=== PATIENT | male | born 1990 | race Caucasian/White ===

== ENCOUNTER 2017-01-06 07:54 | Inpatient (IN) | payer BC, OTHER ==
[~2017-01-06] VITALS: Ht 193 cm; Wt 80.7 kg
--- NOTE | 2017-01-07 22:40 | NUR ---
Pre-Admission Note Px is a 26 year old male, seen at intake, AAOx4, no SOB with slight anxiety, flat affect, withdrawn, passive noted at this time. Discussed with patients admission policies of the unit. Patient is coherent and able to respond to questions appropriately. Pt is ambulatory with steady gait. Vital Signs taken and as follows: . BP= 118/57, CT= 79, RR= 17, T= 97.2, O2sat= 96% RA. Pt verbalized understanding of instructions and teaching regarding disposal of narcotic and other controlled home medications, unit protocols such as taking of vital signs Q4H and handling and disposal of contraband. Will continue with admission upon patients arrival on the unit.
--- NOTE | 2017-01-07 23:06 | NUR ---
Admission Notes Px is 26 year old male admitted to [facility] 01/07/2017 for methamphetamines and Heroin dependence, arrived on the unit at 2306. NKA, denies history of seizures. Px denies any PMHx, but was diagnosed with anxiety and depression in [facility]. Pt was able to provide urine drug screen. Upon admission, COWS 7. BP= 118/57, OK= 79, RR= 15, T= 97.2, O2sat= 96% RA. No reports of pain , weight 178 lbs and height 6 4. Pt denies being hospitalized within the past 30 days. Pt reports she smokes 10 sticks of cigarettes per day. Px reports she doesnt have primary care provider. Pt is able to understand and respond to all questions pertaining to his hospitalization. Substance Abuse History is as follows: 1.Methamphetamine- 0.2 G 2x a week, last intake of 0.2 G IV on 01/06/2017, at this rate for 2 years. 2.Heroin 0.5 G to 2 G IV daily, last intake of 0.5 G IV today 01/07/2017, at this rate for 7 years Pt reports the trigger to use is due to feeling stressed, anxious, and depressed. Px states that he was sober for 1.5 years. 4 months ago went to detox center but cant recall the name of the facility. Px verbalized I wanted to change my miserable life". Px denies family history of substance abuse. At time of assessment, px is AAOx4, is anxious, passive, has flat affect, respirations even/unlabored, denies SOB/chest pain, PERRLA. Skin has scabs from picking over the face, upper back, arms, and left leg, and noted with mild sweat, bowel sounds active x4, abdomen soft. Pt denies suicidal ideations. Educational information provided and left at bedside, pt oriented to room and encouraged to notify staff with any concerns. Safety measures in place, call light within reach, side rails up x2, bed locked and in low position. Will continue to monitor.
[2017-01-07] MEDS ORDERED: CLONIDINE HCL 0.1 MG TABLET PO PRN (23:15)
[2017-01-07] MEDS ORDERED: MIRALAX 17 GM POWD.PACK PO PRN (23:15)
[2017-01-07] MEDS ORDERED: BUPRENORPHINE HCL 2 MG TAB.SUBL SL PRN (23:15)
[2017-01-07] MEDS ORDERED: METHOCARBAMOL 750 MG TABLET PO PRN (23:15)
[2017-01-07] MEDS ORDERED: ONDANSETRON ODT 4 MG TAB.RAPDIS SL PRN (23:15)
[2017-01-07] MEDS ORDERED: MAG HYDROX/AL HYDROX/SIMETH 30 ML LIQUID UDC PO PRN (23:15)
[2017-01-07] MEDS ORDERED: MAGNESIUM HYDROXIDE 30 ML LIQUID UDC PO PRN (23:15)
[2017-01-07] MEDS ORDERED: DICYCLOMINE HCL 20 MG TABLET PO PRN (23:15)
[2017-01-07] MEDS ORDERED: ACETAMINOPHEN 325 MG TABLET PO PRN (23:15)
[2017-01-07] MEDS ORDERED: ONDANSETRON 4 MG/2 ML VIAL IM PRN (23:15)
[2017-01-07] MEDS ORDERED: LOPERAMIDE HCL 2 MG CAPSULE PO PRN ×2 (23:15)
[2017-01-07] MEDS ORDERED: IBUPROFEN 400 MG TABLET PO PRN (23:15)
[2017-01-07 23:35] LABS: BASOPHILS % (AUTO) 0.4 % (0.0-2.0); EOSINOPHILS # (AUTO) 0.1 K/uL (0.0-0.7); HEMATOCRIT 38.8 % (40-50); HEMOGLOBIN 13.3 G/DL (14.0-18.0); LYMPHOCYTES # (AUTO) 2.4 K/UL (0.8-4.8); LYMPHOCYTES % (AUTO) 21.1 % (20.5-51.5); MEAN CORPUSCULAR HEMOGLOBIN 29.7 UUG (27.0-31.0); MEAN CORPUSCULAR HGB CONC 34 g/dL (32.0-37.0); MEAN CORPUSCULAR VOLUME 86.8 FL (82.0-92.0); MONOCYTES # (AUTO) 0.7 K/UL (0.1-1.30); MONOCYTES % (AUTO) 5.9 % (0.0-11.0); NEUTROPHILS # (AUTO) 8.1 K/UL (1.8-8.9); NEUTROPHILS % (AUTO) 71.6 % (38.5-71.5); PLATELET COUNT (AUTO) 296 K/UL (150-450); RED BLOOD CELL COUNT(AUTO) 4.47 MIL/UL (4.7-6.1); WHITE BLOOD COUNT (AUTO) 11.3 K/UL (4.0-11.2)
[2017-01-07 23:44] LABS: *AMPHETAMINE, URINE POSITIVE (NEGATIVE); *BARBITURATE, URINE NEGATIVE (NEGATIVE); *CANNABINOID, URINE POSITIVE (NEGATIVE); *COCCAINE, URINE NEGATIVE (NEGATIVE); *OPIATE, URINE POSITIVE (NEGATIVE); *PHENCYCLIDINE SCREEN,URINE NEGATIVE (NEGATIVE)
[2017-01-07 23:46] LABS: ALANINE AMINOTRANSFERASE 35 U/L (16-63); ALKALINE PHOSPHATASE 64 U/L (50-136); AMYLASE 62 U/L (25-115); ASPARTATE AMINOTRANSFERASE 25 U/L (15-37); BILIRUBIN,TOTAL 0.4 mg/dL (0.2-1.0); CARBON DIOXIDE 33 mmol/L (21-32); CHLORIDE 100 mmol/L (98-107); CREATININE 0.9 mg/dL (0.6-1.3); ETHANOL < 3 MG/DL (0-0); GLUCOSE 97 mg/dL (74-106); LIPASE 147 U/L (73-393); MAGNESIUM 1.9 mg/dL (1.8-2.4); POTASSIUM 4.1 mmol/L (3.5-5.1); TOTAL PROTEIN, SERUM 7.3 g/dL (6.4-8.2); UREA NITROGEN, BLOOD 19 mg/dL (7-18)
[2017-01-07] MEDS ORDERED: BUPR1FIL3 SL (23:51)
[2017-01-07 23:59] LABS: THYROID STIMULATING HORMONE 0.281 mIU/mL (0.358-3.740)
[2017-01-08] VITALS: BP 108/53
[2017-01-08 04:00] VITALS: BP 110/59
--- NOTE | 2017-01-08 07:06 | NUR ---
End of Shift note 26 y/o male px admitted 01/07/2017 at 2306 for Heroin and methamphetamine IV dependence. . Alert, Oriented x4. NKA. On regular diet. Full code. Denies hx of seizures, has hx of anxiety and depression in high school. During shift, Px is cooperative, passive, with flat affect and anxious. Profuse sweating noted at 12MN and a bit restlessness. No complaints received. NO PRN meds given at this time. Slept for 5hrs, fluid intake of 300ml, voided 1x, no BM. Latest COWS 12. Safety measures in place, call light within reach, side rails up 2x, bed locked in low position. Will continue to monitor. Endorsed to AM shift nurse.
[2017-01-08 08:00] VITALS: BP 90/44
[2017-01-08] MEDS ORDERED: TUBERCULIN,PURIF.PROT.DERIV. 5 TU/0.1 ML TEST ID ONE (09:00)
[2017-01-08] MEDS: HYDROXYZINE PAMOATE 25 MG CAPSULE PO PRN (09:26)
[2017-01-08] MEDS: MULTIVITAMINS,THERAPEUTIC TABLET PO SCH (09:26)
--- NOTE | 2017-01-08 09:28 | NUR ---
PRN IBUPROFEN AND ROBAXIN Patient complained of body aches 5/10, prn ibuprofen and robaxin given. Will continue to monitor patient.
--- NOTE | 2017-01-08 10:00 | NUR ---
START OF SHIFT Received report from night shift supervisor nurse. Patient is 26 year old male admitted for medically supervised withdrawal from meth and heroin (patient also positive for cannbinoids). Patient is full code with NKA. On assessment this AM: COWS: 6. Denies SOB, chest pain. Patients vitals signs: 90/44, HR 52, R 18, Temp 98.3, pain 5/10. Recheck: 95/45, HR 51. Reports mild anxiety, stomach cramp, body aches, stuffy nose, sweating. Med compliant with AM meds. PRN Ibuprofen and Robaxin given. PPD skin test performed on RFA to be read on 01/10/17. Instructed patient to drink po fluids. Patient stays in bed most part of the morning. Patient was encouraged to attend group meetings today. Will continue to monitor patient.
--- NOTE | 2017-01-08 10:28 | NUR ---
PRN IBUPROFEN AND ROBAXIN Patient reports pain meds mildly effective at this time.
[2017-01-08 12:00] VITALS: BP 92/50
[2017-01-08] MEDS ORDERED: BUPRENORPHINE HCL 2 MG TAB.SUBL SL PRN (13:45)
[2017-01-08 16:00] VITALS: BP 96/77
--- NOTE | 2017-01-08 16:50 | NUR ---
PRN SUBUTEX Patient's COWS is 15. Patient has dilated pupils, body aches, stuffy noted, frequent yawning, prominent piloerection, restlessness, sweating. PRN Subutex 4mg po sublingual given. Will continue to monitor patient.
--- NOTE | 2017-01-08 17:20 | NUR ---
REASSESSMENT PRN SUBUTEX Patient'S COWS is 7, patient reports feeling much better.
--- NOTE | 2017-01-08 19:30 | NUR ---
END OF SHIFT Patient is 26 year old male admitted for medically supervised withdrawal from meth and heroin. Patient is full code with NKA. Most recent COWS: 7. Compliant with routine meds during this shift. Patient received prn Subutex with COWS 15, reassessment COWS was 7. Patient reports feeling much better. Encouraged patient to hydrate as systolic BP runs in 90's. technology lab teachermanufacturing supervisor 2nd shift will continue to monitor patient.
--- NOTE | 2017-01-08 19:31 | NUR ---
Start of Shift Note: Patient is a 26 y/o male admitted on 01/07/17 for Opiate dependence. Patient reported with medical history of Anxiety and Depression. No seizure history noted. Patient is on a regular diet with no known food and drug allergies. Full Code status. Patient placed on a 4-day Subutex taper to be started tomorrow. PRN Subutex, Robaxin & Motrin was given during day shift. Last COWS 7. Patient is in bed with eyes close. Patient easily arousable to verbal and tactil stimulation. Patient is not in any distress. No shortness of breath noted. Patient complains of 4/10 generalized body aches, chill and sweating. No nausea noted. Patient denies SI/HI. Safety measures in place. Bed locked in lowest position. Both side rails up. Call light within pts reach. Will continue to monitor.
[2017-01-08 20:00] VITALS: BP 89/52
[2017-01-09] VITALS: BP 91/46
[2017-01-09 04:00] VITALS: BP 92/48
--- NOTE | 2017-01-09 07:12 | NUR ---
End of Shift Nurse: Pt had an uneventful night. Pt is placed on a Subutex taper to be started in the morning at 0900. Pt slept most of the night with no s/s of distress. Last COWS 3 No PRN medications were given during my shift. Patient remained stable. Encouraged pt to increase fluid intake. Patient still asleep at this time with no s/s of distress. Pt slept for a total of 11 hours. Pt consumed 500 ml of fluids and voided 1x with no bowel movement. All needs attended. Safety measures in place. Will endorse pt to day shift nurse.
[2017-01-09 07:48] LABS: BASOPHILS # (AUTO) 0.1 K/uL (0.0-8.0); BASOPHILS % (AUTO) 0.7 % (0.0-2.0); EOSINOPHILS # (AUTO) 0.2 K/uL (0.0-0.7); EOSINOPHILS % (AUTO) 1.8 % (0.0-7.0); HEMATOCRIT 40.1 % (40-50); HEMOGLOBIN 13.5 G/DL (14.0-18.0); LYMPHOCYTES # (AUTO) 3.2 K/UL (0.8-4.8); LYMPHOCYTES % (AUTO) 31.6 % (20.5-51.5); MEAN CORPUSCULAR HEMOGLOBIN 28.8 UUG (27.0-31.0); MEAN CORPUSCULAR HGB CONC 34 g/dL (32.0-37.0); MEAN CORPUSCULAR VOLUME 85.8 FL (82.0-92.0); MONOCYTES # (AUTO) 0.6 K/UL (0.1-1.30); MONOCYTES % (AUTO) 6.3 % (0.0-11.0); NEUTROPHILS # (AUTO) 6.1 K/UL (1.8-8.9); NEUTROPHILS % (AUTO) 59.6 % (38.5-71.5); PLATELET COUNT (AUTO) 296 K/UL (150-450); RED BLOOD CELL COUNT(AUTO) 4.68 MIL/UL (4.7-6.1); WHITE BLOOD COUNT (AUTO) 10.2 K/UL (4.0-11.2)
[2017-01-09 08:00] VITALS: BP 102/62
[2017-01-09 08:08] LABS: HEPATITIS B SURFACE AG Negative (Negative)
[2017-01-09] MEDS ORDERED: 4 DAY TAPER BUPRENORPHINE -SERENITY PROTOCOL SL PRN (09:00)
[2017-01-09] MEDS: BUPRENORPHINE HCL 2 MG TAB.SUBL SL SCH ×3 (09:00→22:00)
[2017-01-09] MEDS: MULTIVITAMINS,THERAPEUTIC TABLET PO SCH (09:00)
--- NOTE | 2017-01-09 09:59 | NUR ---
PRN MEDICATION REFUSAL Patient refused Motrin PRN for pain 11/10 body aches. Addendum: 01/09/17 at 1029 by RAGHU CABEZAS RN Time should be 0800.
--- NOTE | 2017-01-09 09:59 | NUR ---
NOT QUALIFYING FOR SUBUTEX DOSE COW score 4. Pt does not qualify for Subutex taper dose per COW score. Will notify Dr. Carpenter on am rounds.
--- NOTE | 2017-01-09 09:59 | NUR ---
MEDICATION REFUSAL Pt refused 0900 vitamin.
[2017-01-09 12:00] VITALS: BP 94/43
--- NOTE | 2017-01-09 13:00 | NUR ---
REFUSAL OF PRN MEDICATION Pt reported pain 7/10 of body and joint aches. Also, pt reported anxiety 7/10. RN to administer PRN Robaxin, Motrin and Vistaril for pain and anxiety, however, BP 94/43, pulse 50. Notified Pt of reason for holding medication at this time due to low BP. Requested/encouraged Pt to ambulate and will recheck vital signs but Pt refused.
[2017-01-09] MEDS: HYDROXYZINE PAMOATE 25 MG CAPSULE PO PRN (13:04)
[2017-01-09] MEDS: METHOCARBAMOL 750 MG TABLET PO SCH ×2 (15:00→21:59)
[2017-01-09 16:00] VITALS: BP 90/50
--- NOTE | 2017-01-09 19:15 | NUR ---
START OF SHIFT Received 26 year old male patient admitted on 01/07/17 for Heroin and Methamphetamine dependency. Pt is full code with NKA. He reports a PMHx of anxiety and depression. He reports using Heroin 0.5-2 grams daily for a total of 7 years. But reports 2 months at this rate. Last dose was 0.5 gram IV on 01/07/17. And methamphetamine 0.5 grams a week. Last dose was 0.2 grams on 01/06/17. Pt placed on 4 day Subutex taper. Pt noted with scabs on face d/t skin picking. Per endorsement, pt was unable to start Subutex taper d/t decreased BP. Pt is lying in bed with eyes closed. Responds to nurses greeting. Safety measures in place. Will monitor.
[2017-01-09 20:00] VITALS: BP 106/72
--- NOTE | 2017-01-09 20:53 | NUR ---
MD Communication: Pt noted with multiple scabs on neck with possible infection. Dr Carpenter contacted and order received for Bactrim DS 100mg BID x 5 days and ATB ointment apply to neck BID. Order entered on behalf of MD as is without computer access.
[2017-01-09] MEDS: SULFAMETH/TRIMETH 800/160 MG TABLET PO SCH (21:59)
[2017-01-09] MEDS ORDERED: SULFAMETH/TRIMETH 800/160 MG TABLET ONE (22:06)
[2017-01-09] MEDS: diphenhydrAMINE 50 MG CAPSULE PO PRN (22:24)
--- NOTE | 2017-01-09 22:24 | NUR ---
PRN BENADRYL Pt complains of inability to sleep. PRN Benadryl administered as ordered. Safety measures in place. Will monitor effectiveness.
--- NOTE | 2017-01-09 23:24 | NUR ---
PRN BENADRYL REASSESSMENT PRN medication effective. Pt lying in bed with eyes closed noted to be asleep. Respirations 16, breathing even and unlabored. Safety measures in place. Will monitor.
--- NOTE | 2017-01-10 | NUR ---
VITALS REFUSED/COWS DEFERRED 0000 vitals refused by pt. COWS deferred d/t pt lying in bed with eyes closed noted to be asleep. Respirations 16, breathing even and unlabored. Safety measures in place. Will monitor.
--- NOTE | 2017-01-10 04:00 | NUR ---
VITALS REFUSED/COWS DEFERRED 0400 vitals refused by pt. COWS deferred d/t pt lying in bed with eyes closed noted to be asleep. Respirations 16, breathing even and unlabored. Safety measures in place. Will monitor.
[2017-01-10 07:05] LABS: BASOPHILS # (AUTO) 0.1 K/uL (0.0-8.0); BASOPHILS % (AUTO) 0.5 % (0.0-2.0); EOSINOPHILS # (AUTO) 0.1 K/uL (0.0-0.7); EOSINOPHILS % (AUTO) 1.1 % (0.0-7.0); HEMATOCRIT 42.1 % (40-50); HEMOGLOBIN 13.8 G/DL (14.0-18.0); LYMPHOCYTES # (AUTO) 3.5 K/UL (0.8-4.8); MEAN CORPUSCULAR HEMOGLOBIN 28.7 UUG (27.0-31.0); MEAN CORPUSCULAR HGB CONC 33 g/dL (32.0-37.0); MEAN CORPUSCULAR VOLUME 87.6 FL (82.0-92.0); MONOCYTES # (AUTO) 0.8 K/UL (0.1-1.30); MONOCYTES % (AUTO) 6.7 % (0.0-11.0); NEUTROPHILS # (AUTO) 7.2 K/UL (1.8-8.9); NEUTROPHILS % (AUTO) 61.7 % (38.5-71.5); PLATELET COUNT (AUTO) 324 K/UL (150-450); RED BLOOD CELL COUNT(AUTO) 4.81 MIL/UL (4.7-6.1); WHITE BLOOD COUNT (AUTO) 11.7 K/UL (4.0-11.2)
[2017-01-10 07:16] LABS: CREATININE 0.9 mg/dL (0.6-1.3); MAGNESIUM 1.9 mg/dL (1.8-2.4)
--- NOTE | 2017-01-10 07:20 | NUR ---
Start of Shift Bunk House Worker received report on 26 year old male admitted on 01/07/17 for Heroin and Methamphetamine detoxification. Pt endorses NKA, full code and regular diet. Reports PMH of anxiety and depression Pt currently on a Subutex taper, tolerating well. Last COWS 8, per report. PRN Benadryl administered on NOC. Bunk House Worker encounters pt in his room resting. Pt is A/O x4, calm, cooperative and makes his needs known. Polite and pleasant on approach. Bed in low position, wheels locked, side rails up x2 and call light within reach.
--- NOTE | 2017-01-10 07:24 | NUR ---
END OF SHIFT Pt is a 26 year old male patient admitted on 01/07/17 for Heroin and Methamphetamine dependency. Pt is full code with NKA. He reports a PMHx of anxiety and depression. Pt started his 4 day Subutex taper at 2100 d/t increased COWS:8. He also received new order for ATB and topical ATB for wounds on face related to skin picking. He received PRN Benadryl. He slept a total of 9 hrs, Intake: 1,100mL, Void: x1, BM:0, COWS:8. Pt remains alert and oriented x4, breathing even and unlabored. Safety measures in place. Endorsed to oncoming shift.
[2017-01-10 08:50] VITALS: BP 98/62
[2017-01-10] MEDS ORDERED: BUPRENORPHINE HCL 2 MG TAB.SUBL SL SCH ×2 (09:00→15:00)
[2017-01-10] MEDS: SULFAMETH/TRIMETH 800/160 MG TABLET PO SCH ×2 (10:18→21:22)
[2017-01-10] MEDS: METHOCARBAMOL 750 MG TABLET PO SCH ×3 (10:18→21:22)
[2017-01-10] MEDS: MULTIVITAMINS,THERAPEUTIC TABLET PO SCH (10:18)
[2017-01-10] MEDS: NEOMY/BACITRAC/POLYMI OINT 28.35 GM TUBE TOP SCH ×2 (10:19→17:00)
[2017-01-10] MEDS: BUPRENORPHINE HCL 2 MG TAB.SUBL SL SCH ×3 (10:19→21:22)
[2017-01-10 12:54] VITALS: BP 111/63
--- NOTE | 2017-01-10 14:46 | NUR ---
Therapist prompted client about group times. Client stated he would try to attend the afternoon group today.
[2017-01-10 16:50] VITALS: BP 99/44
--- NOTE | 2017-01-10 18:55 | NUR ---
End of Shift Mft provided report on 26 year old male admitted on 01/07/17 for Heroin and Methamphetamine detoxification, with no further comments, questions or concerns voiced. Pt endorses NKA, full code and regular diet. Reports PMH of anxiety and depression Pt currently on a Subutex taper, tolerating well. Last COWS 5 at 1600. No PRN administered this shift. Pt is A/O x4, calm, cooperative and makes his needs known. Polite and pleasant on approach. Bed in low position, wheels locked, side rails up x2 and call light within reach.
--- NOTE | 2017-01-10 19:15 | NUR ---
START OF SHIFT Received 26 year old male patient admitted on 01/07/17 for Heroin and Methamphetamine dependency. Pt is full code with NKA. He reports a PMHx of anxiety and depression. He reports using Heroin 0.5-2 grams daily for a total of 7 years. But reports 2 months at this rate. Last dose was 0.5 gram IV on 01/07/17. And methamphetamine 0.5 grams a week. Last dose was 0.2 grams on 01/06/17. Pt placed on 4 day Subutex taper. He did not receive or request PRN medications. Pt is alert and oriented x4, breathing is even and unlabored. Safety measures in place. Will monitor.
[2017-01-10 20:00] VITALS: BP 104/65
[2017-01-10] MEDS: diphenhydrAMINE 50 MG CAPSULE PO PRN (21:22)
--- NOTE | 2017-01-10 21:22 | NUR ---
PRN BENADRYL pt complains of inability to sleep. PRN Benadryl administered as ordered. Safety measures in place. Will monitor effectiveness.
--- NOTE | 2017-01-10 22:22 | NUR ---
PRN BENADRYL REASSESSMENT PRN medication effective. Pt lying in bed with eyes closed noted to be asleep. Safety measures in place. Will monitor.
--- NOTE | 2017-01-11 | NUR ---
VITALS REFUSED/COWS DEFERRED 0000 vitals refused by pt. COWS deferred d/t pt lying in bed with eyes closed noted to be asleep. Respirations 16, breathing even and unlabored. Safety measures in place. Will continue to monitor.
--- NOTE | 2017-01-11 04:00 | NUR ---
VITALS REFUSED/COWS DEFERRED 0400 vitals refused by pt. COWS deferred d/t pt lying in bed with eyes closed noted to be asleep. Respirations 16, breathing even and unlabored. Safety measures in place. Will continue to monitor.
--- NOTE | 2017-01-11 07:25 | NUR ---
END OF SHIFT Pt is a 26 year old male patient admitted on 01/07/17 for Heroin and Methamphetamine dependency. Pt is full code with NKA. He reports a PMHx of anxiety and depression. Pt continues on his Subutex taper and tolerating well. He received PRN Benadryl. He slept a total of 5hrs, Intake: 1390mL, Void: x3, BM:1, COWS:5. Pt remains alert and oriented x4, breathing is even and unlabored. Safety measures in place. Endorsed to oncoming shift.
[2017-01-11 08:00] VITALS: BP 116/64
--- NOTE | 2017-01-11 08:05 | NUR ---
START OF SHIFT: RECEIVED PT A/O X4. HE C/O MUSCLE ACHES,RESTLESSNESS AND ANXIETY. PRN MOTRIN GIVEN ALONG WITH SCHEDULED SUBUTEX AND SCHEDULED ROBAXIN. COWS 4. ENCOURAGED INCREASED FLUIDS. ENCOURAGED GROUP ATTENDANCE TO IMPROVE COPING SKILLS AND PREVENT RELAPSE. WILL CONTINUE TO MONITOR AND MANAGE S/S OF W/D.
[2017-01-11] MEDS: SULFAMETH/TRIMETH 800/160 MG TABLET PO SCH ×2 (08:49→21:14)
[2017-01-11] MEDS: NEOMY/BACITRAC/POLYMI OINT 28.35 GM TUBE TOP SCH ×2 (08:50→16:58)
[2017-01-11] MEDS: METHOCARBAMOL 750 MG TABLET PO SCH ×3 (08:50→21:14)
[2017-01-11] MEDS: MULTIVITAMINS,THERAPEUTIC TABLET PO SCH (08:50)
[2017-01-11] MEDS ORDERED: BUPRENORPHINE HCL 2 MG TAB.SUBL SL SCH ×2 (09:00)
[2017-01-11] MEDS ORDERED: SULF1TAB3 PO (11:20)
[2017-01-11] MEDS ORDERED: LACT1CAP72 PO (11:20)
[2017-01-11] MEDS ORDERED: HYDR-3895 PO (11:20)
[2017-01-11] MEDS ORDERED: METH-406 PO (11:20)
[2017-01-11] MEDS ORDERED: CLON0.1T14 PO (11:20)
[2017-01-11 12:00] VITALS: BP 119/68
[2017-01-11 16:00] VITALS: BP 118/70
--- NOTE | 2017-01-11 19:01 | NUR ---
END OF SHIFT: PT COMPLETED SUBUTEX TAPER. HE CONTINUES ON ABT THERAPY WITH BACTRIM PO FOR ABSCESS TO FA. AND TOLERATING WELL. LAST COWS 2. HE ATTENDED SOME GROUPS AND INTERACTED WITH PEERS. WILL PASS SHIFT REPORT TO ONCOMING NIGHT NURSE.
[2017-01-11 20:00] VITALS: BP 97/52
--- NOTE | 2017-01-11 20:00 | NUR ---
Start of Shift Pt is a 26 year old male admitted for Opiate/Meth dependence, placed on 4 day Subutex taper, completed. Pt reported using Heroin 0.5 - 2g/daily and Meth 0.4g/weekly. PMH: Anxiety and Depression. NKA, regular diet, fall precautions and full code. Upon assessment, Pt presents in room, alert/oriented x4, reports feeling body aches, fatigue, skin mild flushed, respirations even/unlabored, denies SOB/chest pain, denies n/v/d, bowl sounds active x4, abdomen soft. medications due. Pt is scheduled for discharge tomorrow. Safety measures in place, call light within reach, side rails up x2, bed locked and in low position. Will continue to monitor.
--- NOTE | 2017-01-12 | NUR ---
Pt refused to be woken up for 0000 Vital Signs COWS deferred due to pt sleeping to asses while pt is awake Safety measures in place. Will continue to monitor
--- NOTE | 2017-01-12 04:00 | NUR ---
Pt refused to be woken up for 0400 Vital Signs COWS deferred due to pt sleeping to asses while pt is awake Safety measures in place. Will continue to monitor
--- NOTE | 2017-01-12 07:00 | NUR ---
End of Shift Pt is a 26 year old male admitted for Opiate/Meth dependence, placed on 4 day Subutex taper, completed. Pt reported using Heroin 0.5 - 2g/daily and Meth 0.4g/weekly. PMH: Anxiety and Depression. NKA, regular diet, fall precautions and full code. During shift, reported feeling body aches, fatigue, skin mild flushed - scheduled medications administered, latest COWS 2. No PRN medications administered. Pt is scheduled for discharge today. Pt slept for 6 hours, intake of 1255ml PO, voids x3 and stool x0. Safety measures in place, call light within reach, side rails up x2, bed locked and in low position. Endorsed to days shift nurse.
[2017-01-12 08:00] VITALS: BP 90/60
--- NOTE | 2017-01-12 08:05 | NUR ---
START OF SHIFT: RECEIVED PT A/O X4. HE C/O MILD MUSCLE ACHES AND ANXIETY. SUBUTEX TAPER COMPLETED AND DISCHARGE SCHEDULED FOR THIS AM FOR ABLE TO CHANGE. COWS 2. HE EXPRESSED ENTHUSIASM TOWARD RECOVERY. WILL CONTINUE WITH DISCHARGE PROCESS.
[2017-01-12] MEDS: MULTIVITAMINS,THERAPEUTIC TABLET PO SCH (08:51)
[2017-01-12] MEDS: METHOCARBAMOL 750 MG TABLET PO SCH (08:51)
[2017-01-12] MEDS: SULFAMETH/TRIMETH 800/160 MG TABLET PO SCH (08:51)
[2017-01-12] MEDS: NEOMY/BACITRAC/POLYMI OINT 28.35 GM TUBE TOP SCH (08:52)
[2017-01-12] MEDS ORDERED: BUPRENORPHINE HCL 2 MG TAB.SUBL SL SCH (09:00)
--- NOTE | 2017-01-12 09:50 | NUR ---
DISCHARGE: PT IS A/O X4. HE DENIES S/I AND H/I. HE STATES HE IS MOTIVATED TO STAY CLEAN AND STATES HE FEELS ENTHUSIASTIC TOWARD RECOVERY. BELONGINGS RETURNED. EDUCATED PT ON DISCHARGE INSTRUCTIONS AND MEDICATIONS. INVOICE CONTROL CLERK ESCORTED PT TO [facility] WHERE HE WAS TRANSPORTED BY [employer] [facility] TO [facility] TO CHANGE AT 0943.
== END 2017-01-12 09:43 | disposition other institution (70) | DRG 895 ==
LOC: SRC 01-07 22:02
PROVIDERS: ADMIT Internal Medicine; ATTEND Internal Medicine
PROC: HZ2ZZZZ Detoxification Services for Substance Abuse Treatment (ICD-10-PCS; principal; 2017-01-07)
PROC: HZ31ZZZ Individual Counseling for Substance Abuse Treatment, Behavioral (ICD-10-PCS; 2017-01-10)
PROC: HZ41ZZZ Group Counseling for Substance Abuse Treatment, Behavioral (ICD-10-PCS; 2017-01-11)
DX: F11.23 Opioid dependence with withdrawal (principal); F15.20 Other stimulant dependence, uncomplicated; I95.9 Hypotension, unspecified; E87.1 Hypo-osmolality and hyponatremia; E86.0 Dehydration; F41.9 Anxiety disorder, unspecified; F17.210 Nicotine dependence, cigarettes, uncomplicated; E07.81 Sick-euthyroid syndrome
CPT/HCPCS: 36415; 70030-TC; 80307; 80324; 80349; 80361; 83690; 83735; 84100; 84443; 85025; 86580; 86592; 86705; 86803; 87340; 87806; A4663; G0480; Q0163